=== PATIENT | female | born 1975 | race Caucasian/White ===

== ENCOUNTER 2023-12-30 11:33 | Emergency (ER) | payer BC ==
[~2023-12-30] VITALS: Ht 165.1 cm; Wt 75.0 kg
[2023-12-30 11:42] VITALS: TEMP 97.5
[2023-12-30] MEDS ORDERED: Ondansetron 4 MG/2 ML VIAL IV ONE (12:15)
[2023-12-30] MEDS ORDERED: HYDROmorphone 0.5 MG/0.5 ML SYRINGE IV ONE (12:15)
[2023-12-30] MEDS ORDERED: NS 1,000 ML IV ONE (12:15)
[2023-12-30 12:52] LABS: BASO % 0.4 % (0.0-2.0); EOS % 0.4 % (0.0-4.0); GRAN # 6.3 K/mm3 (1.4-6.5); GRAN % 79.1 % (42.2-75.2); HEMOGLOBIN 10.5 g/dl (12.5-16.0); LYMPH # 1.1 K/mm3 (1.2-3.4); LYMPH % 13.8 % (20.0-51.0); MEAN CELL VOLUME 80 fl (80.0-100.0); MEAN CORPUSCULAR HEMOGLOBIN 25 pg (27-31); MEAN CORPUSCULAR HGB CONC 32 g/dl (33.0-37.0); MEAN PLATELET VOLUME 9.5 fl (7.4-10.4); MONO # 0.5 K/mm3 (0.1-0.6); MONO % 5.9 % (1.7-9.3); PLATELET COUNT 263 K/mm3 (130-400); RED BLOOD COUNT 4.13 M/mm3 (4.10-5.30); REDCELL DISTRIBUTION WIDTH-CV 19.2 % (11.5-14.5)
[2023-12-30 13:13] LABS: ALANINE AMINOTRANSFERASE 14 U/L (0-55); ALBUMIN 3.4 g/dL (3.5-5.0); ALKALINE PHOSPHATASE 71 U/L (40-150); ANION GAP 10 mmol/L (7-16); AST,SGOT 14 U/L (5-34); BILIRUBIN,TOTAL 0.6 mg/dL (0.2-1.2); BLOOD UREA NITROGEN 12 mg/dL (10-20); C-REACTIVE PROTEIN 0.09 mg/dL (0.00-0.50); CALCIUM 9.2 mg/dL (8.4-10.2); CHLORIDE 108 mEq/L (98-107); GLUCOSE 139 mg/dL (70-99); LIPASE 31 U/L (8-78); POTASSIUM 3.2 mEq/L (3.5-4.5); SODIUM 140 mEq/L (136-145); TOTAL PROTEIN 6.3 g/dl (6.2-8.1)
[2023-12-30 13:30] LABS: URINE APPEARANCE CLEAR (CLEAR/HAZY); URINE BLOOD NEGATIVE (NEGATIVE); URINE COLOR YELLOW (YELLOW); URINE GLUCOSE NEGATIVE (NEGATIVE); URINE KETONE NEGATIVE (NEGATIVE); URINE NITRATE NEGATIVE (NEGATIVE); URINE PROTEIN(semi-quant) NEGATIVE (NEGATIVE); URINE UROBILINOGEN 0.2 E.U/dL (0.2-1.0)
[2023-12-30 13:39] LABS: TROPONIN-I < 0.010 ng/mL (0.00-0.033)
[2023-12-30 13:42] LABS: COLLECTION METHOD CLEAN CATCH
[2023-12-30] MEDS ORDERED: Iohexol 300 - 100 ML VIAL IV ONE (14:08)
[2023-12-30] MEDS ORDERED: NS 100 ML IV SCH (14:09)
[2023-12-30 15:17] VITALS: BP 109/74; PULSE 77
== END 2023-12-30 15:17 | disposition home or self-care (01) ==
LOC: COL.ER 11:33
PROVIDERS: Nurse Practitioner
DX: K59.00 Constipation, unspecified (principal)
CPT/HCPCS: J1170; J2405; J7030; Q9967